=== PATIENT | male | born 1935 | race African-American/Black ===

== ENCOUNTER 2018-07-15 05:48 | Emergency (ER) | payer MEDICARE, OTHER ==
[~2018-07-15] VITALS: Ht 175.3 cm; Wt 61.0 kg
[2018-07-15] MEDS ORDERED: ONDANSETRON HCL 4MG/2ML INJ IV STA (07:19)
[2018-07-15 07:38] LABS: CHLORIDE 98 mEq/L (98-107)
[2018-07-15 07:39] LABS: HEMATOCRIT. 33.8 % (42.0-52.0); HEMOGLOBIN. 11.5 g/dL (14.0-18.0); MEAN CORPUSCULAR HEMOGLOBIN 32.3 pg (28.0-32.0); MEAN CORPUSCULAR VOLUME 95.1 fL (80.0-94.0); MEAN PLATELET VOLUME 8.1 fl (7.4-10.4); PLATELET 123 x1000/uL (130-400); RED BLOOD CELL COUNT 3.55 mill/uL (4.7-6.1); RED CELL DISTRIBUTION WIDTH 12.6 % (11.6-14.6)
[2018-07-15 07:40] LABS: INR 1.1
[2018-07-15 08:22] LABS: PLATELET ESTIMATE SLIGHTLY DECREASED
[2018-07-15 10:21] LABS: CLARITY URINE CLEAR (CLEAR); COLOR URINE YELLOW (YELLOW); KETONES URINE NEGATIVE (NEGATIVE); LEUKOCYTE ESTERASE URINE NEGATIVE (NEGATIVE); NITRITE URINE NEGATIVE (NEGATIVE); OCCULT BLOOD URINE NEGATIVE (NEGATIVE); PH URINE 7.5 (4.5-8.0); PROTEIN URINE NEGATIVE (NEGATIVE); SPECIFIC GRAVITY URINE 1.008 (1.005-1.030)
[2018-07-15 12:07] VITALS: BP 136/56
== END 2018-07-15 12:57 | disposition short-term general hospital (02) ==
LOC: EDBD 05:48 → ER 05:48
DX: R42 Dizziness and giddiness (principal); I10 Essential (primary) hypertension
CPT/HCPCS: 36415; 71045; 84484; 93005; 99285